=== PATIENT | female | born 1990 | race Caucasian/White ===

== ENCOUNTER 2017-04-21 14:32 | Emergency (ER) | payer OTHER ==
[~2017-04-21] VITALS: Ht 157.5 cm; Wt 59.1 kg
[2017-04-21 15:29] VITALS: BP 122/81
== END 2017-04-21 15:55 | disposition home or self-care (01) ==
LOC: ED 14:32
DX: S93.402A Sprain of unspecified ligament of left ankle, initial encounter (principal); G89.29 Other chronic pain; X50.1XXA Overexertion from prolonged static or awkward postures, initial encounter; Y93.01 Activity, walking, marching and hiking; Y99.8 Other external cause status; Y92.89 Other specified places as the place of occurrence of the external cause

== ENCOUNTER 2017-04-25 21:20 | Emergency (ER) | payer OTHER ==
[2017-04-25 23:33] VITALS: BP 125/76
== END 2017-04-25 23:33 | disposition home or self-care (01) ==
LOC: ED 21:20
DX: R10.13 Epigastric pain (principal); R11.10 Vomiting, unspecified; R19.7 Diarrhea, unspecified
CPT/HCPCS: Q0162

== ENCOUNTER 2017-07-20 20:14 | Emergency (ER) | payer OTHER ==
[2017-07-20 22:24] VITALS: BP 130/79
== END 2017-07-20 22:24 | disposition home or self-care (01) ==
LOC: ED 20:14
DX: S51.851A Open bite of right forearm, initial encounter (principal); S51.811A Laceration without foreign body of right forearm, initial encounter; G89.29 Other chronic pain; W54.0XXA Bitten by dog, initial encounter; Y93.89 Activity, other specified; Y99.8 Other external cause status; Y92.89 Other specified places as the place of occurrence of the external cause
CPT/HCPCS: 90715

== ENCOUNTER → 2018-06-30 | Outpatient (CLI) | payer OTHER ==
[2018-06-30 11:14] LABS: BASOPHIL % 1.5 % (0-2); PLATELET COUNT 351 x10^3mcL (130-400); RED CELL DISTRIBUTION WIDTH 12.6 % (11.5-14.5)
[2018-06-30 11:44] LABS: ALKALINE PHOSPHATASE 44 U/L (46-116); ALT/SGPT 17 U/L (14-59); AST/SGOT 12 U/L (15-37); BILIRUBIN DIRECT 0.09 mg/dL (0.0-0.2); BILIRUBIN TOTAL 0.42 mg/dL (0.20-1.00); CALCIUM 8.8 mg/dL (8.5-10.1); CARBON DIOXIDE 25.2 mmol/L (21-32); CHLORIDE SERUM 103 mmol/L (98-107); CHOLESTEROL 196 mg/dL (<200); CHOLESTEROL/HDL RATIO 2.7; GFR1 > 60 mL/min; GLUCOSE SERUM 89 mg/dL (74-106); HDL CHOLESTEROL 73 mg/dL (40-60); POTASSIUM SERUM 3.9 mmol/L (3.5-5.1); SODIUM SERUM 138 mmol/L (136-145); TOTAL PROTEIN, SERUM 7.8 g/dL (6.4-8.2); TRIGLYCERIDES 93 mg/dL (<150)
== END | disposition home or self-care (01) ==
LOC: LB 10:49
PROVIDERS: Internal Medicine
DX: Z00.00 Encounter for general adult medical examination without abnormal findings (principal)

== ENCOUNTER → 2019-04-01 | Outpatient (CLI) | payer OTHER | END | disposition home or self-care (01) | LOC: LB 07:56 | DX: N39.0 Urinary tract infection, site not specified (principal) ==

== ENCOUNTER → 2019-06-11 | Outpatient (CLI) | payer OTHER ==
[2019-06-11 13:39] LABS: BASOPHIL % 0.4 % (0-2); PLATELET COUNT 389 x10^3mcL (130-400); RED CELL DISTRIBUTION WIDTH 13.2 % (11.5-14.5)
[2019-06-11 13:53] LABS: ALBUMIN 4.1 g/dL (3.4-5.0); ALKALINE PHOSPHATASE 47 U/L (46-116); ALT/SGPT 22 U/L (14-59); AST/SGOT 14 U/L (15-37); BILIRUBIN DIRECT 0.11 mg/dL (0.0-0.2); BILIRUBIN TOTAL 0.3 mg/dL (0.20-1.00); CALCIUM 9.5 mg/dL (8.5-10.1); CARBON DIOXIDE 26.5 mmol/L (21-32); CHLORIDE SERUM 102 mmol/L (98-107); CREATININE SERUM 0.8 mg/dL (0.6-1.0); GFR1 > 60 mL/min; GLUCOSE SERUM 86 mg/dL (74-106); POTASSIUM SERUM 4.1 mmol/L (3.5-5.1); SODIUM SERUM 138 mmol/L (136-145); TOTAL PROTEIN, SERUM 7.8 g/dL (6.4-8.2); TRIGLYCERIDES 62 mg/dL (<150)
[2019-06-11 13:57] LABS: CHOLESTEROL 209 mg/dL (<200); CHOLESTEROL/HDL RATIO 2.5; HDL CHOLESTEROL 85 mg/dL (40-60)
== END | disposition home or self-care (01) ==
LOC: LB 13:17
PROVIDERS: Internal Medicine
DX: Z00.00 Encounter for general adult medical examination without abnormal findings (principal); N39.0 Urinary tract infection, site not specified